=== PATIENT | male | born 1940 | race Caucasian/White ===

== ENCOUNTER → 2016-03-28 | Outpatient (CLI) | payer MEDICARE, OTHER ==
--- NOTE | 2016-03-28 17:57 | CT ---
CT Coronary Calcium Score History: Screening. Increasing cholesterol. Technique: Prospectively gated noncontrast images through the chest without contrast. Dose reduction techniques were utilized. Findings: LT Main; 1, LAD; 0, LCx; 0, RCA; 9, PDA; 0 Calcium score according to the Agatston-Janowitz criteria is 10 which is consistent with the 15 perce ntile for age. This means that 85% of patients of this age group have calcium score higher than this patient. Noncardiac Evaluation: There are no significant pulmonary nodules. The ascending thoracic aorta at th e level of the pulmonary artery measures 4.3 cm. Stable to comparison chest CT April 2007. Mild pa raseptal emphysema is seen medially in the left upper lobe. Impression: A calcium score of 10 places the patient in the 15 percentile rank for age. Recommendations: 1. Risk factor modification. Consider repeat scans in 2 to 5 years. 2. 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
== END ==
LOC: FIMAGING 10:28
PROVIDERS: ATTEND Family Medicine
DX: Z13.6 Encounter for screening for cardiovascular disorders (principal)

== ENCOUNTER → 2016-04-09 | Outpatient (CLI) | payer OTHER, MEDICARE ==
--- NOTE | 2016-04-09 16:03 | DX ---
Left First Toe - Three Views Indication: Recurrent infection of great toe. History of exostectomy. Rule out osteomyelitis. Comparison: Left great toe series dated May 02, 2015 and April 03, 2015. Findings: No periostitis, bony destruction, or subcutaneous gas. Small erosions along the medial as pect of the 1st metatarsophalangeal joint, involving the base of the proximal phalanx and head of the 1st metatarsal, are unchanged since April 2015. 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 Impression: 1. Minimal productive arthropathy at the 1st metatarsophalangeal joint is unchanged since 2016. 2. No evidence of osteomyelitis or bone lesion.
== END ==
LOC: BMCIMAGING 14:44
PROVIDERS: ATTEND Podiatrist Foot & Ankle Surgery
DX: M79.672 Pain in left foot (principal); B35.1 Tinea unguium

== ENCOUNTER → 2016-04-14 | Outpatient (CLI) | payer OTHER, MEDICARE ==
[~2016-04-14] MED LIST: GADOBUTROL 10 ML VIAL IVP ONE
--- NOTE | 2016-04-14 16:20 | MR ---
MRI of the Left Forefoot Without and With Contrast History: Status post left great toe surgery. Evaluate for possible osteomyelitis. Technique: Precontrast axial, sagittal, and coronal MRI sequences of the left forefoot are obtained. After intravenous administration of 7 mL Gadavist, postcontrast enhanced imaging is obtained in three planes. Findings: Postsurgical changes are identified within soft tissues medial to the distal phalanx of the left great toe, including metallic susceptibility artifact. No evidence of focal fluid collection. N o evidence of soft tissue abscess. The marrow signal intensity of the distal phalanx is minimally het erogeneous along the tip without significant bone marrow edema or abnormal enhancement to suggest ost eomyelitis. The remainder of the study is normal in appearance. Impression: Postsurgical changes within the soft tissues medial to the distal phalanx of the left gre at toe. No evidence of abscess. Minimal heterogeneity of the marrow signal intensity of the distal tu ft without significant bone marrow changes or enhancement to suggest osteomyelitis.
== END ==
LOC: FIMAGING 08:08
PROVIDERS: ATTEND Podiatrist Foot & Ankle Surgery
DX: Z47.89 Encounter for other orthopedic aftercare (principal); L03.032 Cellulitis of left toe
CPT/HCPCS: 73720; A9585

== ENCOUNTER → 2017-09-01 | Outpatient (CLI) | payer OTHER, MEDICARE | LOC: BMCIMAGING 16:34 | PROVIDERS: ATTEND Family Medicine | DX: S69.92XA Unspecified injury of left wrist, hand and finger(s), initial encounter (principal) ==

== ENCOUNTER → 2017-12-14 | Outpatient (CLI) | payer OTHER, MEDICARE | LOC: MERGE 14:37 → BMCIMAGING 14:37 | PROVIDERS: ATTEND Emergency Medicine | DX: M25.562 Pain in left knee (principal) ==

== ENCOUNTER 2018-01-28 20:39 | Emergency (ER) | payer OTHER, MEDICARE ==
--- NOTE | 2018-01-28 21:33 | EDPHY ---
H & P Time Seen by Provider: 01/28/18 21:09 HPI/ROS: CHIEF COMPLAINT: Postoperative wound bleeding HISTORY OF PRESENT ILLNESS: Patient had surgery on his left knee today with quadriceps tendon repair by Dr. Hunter Stern. He is in a knee immobilizer. He comes in [facility] for evaluation because there is blood on his dressing. No other complaints. REVIEW OF SYSTEMS: No fever, no chest pain or shortness of breath PAST MEDICAL HISTORY: Includes macular degeneration, gout, cholesterol, hypothyroid. General Appearance: Alert and conversant, cooperative. Dressing is taken down on the left knee. He is kept with his leg straight out of the immobilizer. There is 1 area of oozing inferior which is stopped with direct pressure, at the suture line. The xeroform dressing over the wound is not removed. Additional Xeroform and gauze and cast padding is placed to reinforce the dressing. His compression stocking is placed over that. He is put back in the knee immobilizer without bending his knee. Emergency Department course/MDM: Postoperative wound bleeding, stopped with direct pressure. Call is placed discussed with Master for Sandra Stern, will inform at 2210. Constitutional: Initial Vital Signs Temperature (C) 36.8 C 01/28/18 20:45 Heart Rate 91 01/28/18 20:45 Respiratory Rate 18 01/28/18 20:45 Blood Pressure 121/74 H 01/28/18 20:45 O2 Sat (%) 94 01/28/18 20:45 O2 Delivery Mode Room Air Allergies/Adverse Reactions: No Known Allergies Allergy (Unverified 01/28/18 20:43) Home Medications: Medication Instructions Recorded Allopurinol 01/28/18 Levothyroxine 01/28/18 Pravastatin Sodium 01/28/18 Preservision Areds 2 Softgel 01/28/18 Vitamin B12 01/28/18 Vitamin D3 01/28/18 MDM/Departure - Depart Disposition: Home, Routine, Self-Care Clinical Impression: postoperative bleeding incision Condition: Good Instructions: Knee Immobilizer (ED) Referrals: Radha Trujillo MD [Primary Care Provider] - As per Instructions Hunter Stern MD [Medical Doctor] - As per Instructions (Call your doctor tomorrow, have wound examined tomorrow if you're still bleeding)
[2018-01-28 22:13] VITALS: BP 109/67
== END 2018-01-28 22:28 | disposition home or self-care (01) ==
DX: M96.842 Postprocedural seroma of a musculoskeletal structure following a musculoskeletal system procedure (principal)